=== PATIENT | female | born 1990 | race Caucasian/White ===

== ENCOUNTER 2018-01-14 22:41 | Inpatient (IN) | payer BC ==
[2018-01-14] MEDS ORDERED: Misoprostol 200 MCG Tab PO PRN (23:34)
[2018-01-14] MEDS ORDERED: Butorphanol 1 MG/ML SDV IVPUSH PRN (23:34)
[2018-01-14] MEDS ORDERED: Nalbuphine 10 MG/1 ML Vial IVPUSH PRN (23:34)
[2018-01-14] MEDS ORDERED: Tranexamic Acid 1,000 MG in Sodium Chloride 0.9% 100 ML IV PRN (23:34)
[2018-01-14] MEDS ORDERED: Water For Irrigation,Sterile 1,000 ML Container IRR PRN (23:34)
[2018-01-14] MEDS ORDERED: Carboprost Tromethamine 250 MCG/1 ML Amp IM PRN (23:34)
[2018-01-14] MEDS ORDERED: Methylergonovine 0.2 MG/1 ML Amp IM PRN (23:34)
[2018-01-14] MEDS ORDERED: Lidocaine 1% 50 ML MDV INJECT PRN (23:34)
[2018-01-14] MEDS ORDERED: Sodium Chloride 0.9% 10 ML Syringe FLUSH PRN (23:34)
[2018-01-14] MEDS ORDERED: Sodium Chloride 0.9% 2.5 ML Syringe FLUSH PRN (23:34)
[2018-01-14] MEDS ORDERED: Terbutaline 1 MG/ML SDV SUBCUT PRN (23:36)
[2018-01-14] MEDS ORDERED: Oxytocin/0.9 % Sodium Chloride 30 UNIT/500 ML BAG IV SCH ×2 (23:45)
[2018-01-15] MEDS ORDERED: Ampicillin 2 GM in Sodium Chloride 0.9% 100 ML IV ONE ×2
[2018-01-15] MEDS: Lactated Ringers 1,000 ML IV SCH ×2 (00:31→02:35)
[2018-01-15] MEDS ORDERED: Ampicillin 1 GM in Sodium Chloride 0.9% 50 ML IV SCH (04:00)
[2018-01-15] MEDS ORDERED: fentaNYL 100 MCG/2 ML SDV ONE (04:28)
--- NOTE | 2018-01-15 05:01 | PCM.PREANE ---
Preanesthetic Assessment - Anesthesia/Transfusion/Family Hx Family History of Anesthesia Reaction: No - Review of Systems General: No Symptoms Pulmonary: No Symptoms Cardiovascular: No Symptoms Gastrointestinal: No Symptoms Neurological: No Symptoms Other: Reports: None (Denies any personal or family hx of bleeding or clotting problems) - Physical Assessment Height: 1.75 m Weight: 106.594 kg ASA Class: 2 Mental Status: Alert & Oriented x3 Dentition: Reports: Normal Dentition ROM/Head Extension: Full - Lab Values: Laboratory Last Values WBC 12.40 K/uL (4.0-11.0) H 01/14/18 23:24 RBC 4.15 M/uL (4.30-5.90) L 01/14/18 23:24 Hgb 12.2 g/dL (12.0-16.0) 01/14/18 23:24 Hct 35.5 % (36.0-46.0) L 01/14/18 23:24 MCV 85.5 fL (80.0-98.0) 01/14/18 23:24 MCH 29.4 pg (27.0-32.0) 01/14/18 23:24 MCHC 34.4 g/dL (31.0-37.0) 01/14/18 23:24 RDW Std Deviation 41.8 fl (28.0-62.0) 01/14/18 23:24 RDW Coeff of Aislinn 14 % (11.0-15.0) 01/14/18 23:24 Plt Count 177 K/uL (150-400) 01/14/18 23:24 MPV 10.30 fL (7.40-12.00) 01/14/18 23:24 Nucleated RBC % 0.0 /100WBC 01/14/18 23:24 Nucleated RBCs # 0 K/uL 01/14/18 23:24 Blood Type O NEGATIVE 01/14/18 23:24 Antibody Screen NEGATIVE 01/14/18 23:24 - Allergies Allergies/Adverse Reactions: Allergies Allergy/AdvReac Type Severity Reaction Status Date / Time No Known Allergies Allergy Verified 01/15/18 00:14 - Acknowledgements Anesthesia Type Planned: Epidural Pt an Appropriate Candidate for the Planned Anesthesia: Yes Alternatives and Risks of Anesthesia Discussed w Pt/Guardian: Yes Additional Comments: male in room listening PreAnesthesia Questionnaire - Past Surgical History HEENT Surgical History: Reports: Other (See Below) ([place] teeth) - HOME MEDS Home Medications: Home Meds Vit #108/Iron/FA [ One Tablet] 1 each PO DAILY 01/15/18 [ History] - CURRENT (IN HOUSE) MEDS Current Meds: Current Medications Butorphanol Tartrate (Stadol) 1 mg IVPUSH Q1H PRN PRN Reason: Pain Carboprost Tromethamine (Hemabate Ds) 250 mcg IM ASDIRECTED PRN PRN Reason: Post Hemorrhage Lactated Ringer's (Ringers, Lactated) 1,000 mls @ 150 mls/hr IV ASDIRECTED REINA Last Admin: 01/15/18 02:35 Dose: 150 mls/hr Oxytocin/Sodium Chloride (Oxytocin 30 Unit/500 Ml-Ns) 30 unit in 500 mls @ 999 mls/hr IV TITRATE REINA Tranexamic Acid 1,000 mg/ (Sodium Chloride) 110 mls @ 660 mls/hr IV ONETIME PRN PRN Reason: Bleeding Oxytocin/Sodium Chloride (Oxytocin 30 Unit/500 Ml-Ns) 30 unit in 500 mls @ 2 mls/hr IV TITRATE REINA; Protocol Last Titration: 01/15/18 03:40 Dose: 6 munits/min, 6 mls/hr Ampicillin Sodium 1 gm/ Sodium (Chloride) 50 mls @ 100 mls/hr IV Q4H REINA Lidocaine HCl (Xylocaine 1%) 50 ml INJECT .ONCE PRN PRN Reason: Laceration repair Methylergonovine Maleate (Methergine) 0.2 mg IM ASDIRECTED PRN PRN Reason: Post Hemorrhage Misoprostol (Cytotec) 200 mcg PO .ONCE PRN PRN Reason: Post Hemorrhage Nalbuphine HCl (Nubain) 10 mg IVPUSH Q1H PRN PRN Reason: Pain (severe 7-10) Sodium Chloride (Saline Flush) 10 ml FLUSH ASDIRECTED PRN PRN Reason: Keep Vein Open Sodium Chloride (Saline Flush) 2.5 ml FLUSH ASDIRECTED PRN PRN Reason: Keep Vein Open Sterile Water (Sterile Water For Irrigation) 1,000 ml IRR ASDIRECTED PRN PRN Reason: delivery Terbutaline Sulfate (Brethine) 0.25 mg SUBCUT ASDIRECTED PRN PRN Reason: Tacysystole Discontinued Medications Fentanyl (Sublimaze) Confirm Administered Dose 100 mcg .ROUTE .STK-MED ONE Stop: 01/15/18 04:29 Ampicillin Sodium 2 gm/ Sodium (Chloride) 100 mls @ 200 mls/hr IV ONETIME ONE Stop: 01/15/18 00:29 Last Admin: 01/15/18 00:31 Dose: 200 mls/hr Fentanyl/Bupivacaine HCl (Cmuffngr-Rxunw-Ic 2 Mcg/Ml-0.125%) Confirm Administered Dose 100 mls @ as directed EP .STK-MED ONE Stop: 01/15/18 04:29
--- NOTE | 2018-01-15 05:56 | PCM.SN ---
- Free Text/Narrative Note: Patient still pushing so Dr. Vigil requests epidural infusion to begin. See OB Anesthesia Record for details.
--- NOTE | 2018-01-15 07:59 | PCM.DEL ---
L & D Note - General Info Date of Service: 01/15/18 Mother's Due Date: 01/23/18 - Delivery Note Labor: Augmented by Oxytocin Delivery Outcome: Livebirth Infant Delivery Method: Spontaneous Vaginal Delivery-Single Presentation: Left Occiput Anterior (OMAR) Nuchal Cord: None Prep: Other Anesthesia Type: None, Epidural Episiotomy Type: None Laceration: None, Vaginal Suture type: Vicryl Suture size: 3-0 Placenta: Intact, Spontaneous Cord: 3 Vessels Estimated Blood Loss: 300 Resuscitation Needed: No [place]: Bulb Syringe, [place] Used Score 1 min: 8 Score 5 min: 9 Second Stage Interventions: Reports: Pushing Effectively (presented PROM, wtih induction, GBS prophylaxis) - General Info Date of Service: 01/15/18 - Patient Data Weight - Most Recent: 106.594 kg Lab Results Last 24 Hours: Laboratory Results - last 24 hr 01/14/18 01/14/18 Range/Units 23:24 23:24 WBC 12.40 H (4.0-11.0) K/uL RBC 4.15 L (4.30-5.90) M/uL Hgb 12.2 (12.0-16.0) g/dL Hct 35.5 L (36.0-46.0) % MCV 85.5 (80.0-98.0) fL MCH 29.4 (27.0-32.0) pg MCHC 34.4 (31.0-37.0) g/dL RDW Std Deviation 41.8 (28.0-62.0) fl RDW Coeff of Aislinn 14 (11.0-15.0) % Plt Count 177 (150-400) K/uL MPV 10.30 (7.40-12.00) fL Nucleated RBC % 0.0 /100WBC Nucleated RBCs # 0 K/uL Blood Type O NEGATIVE Antibody Screen NEGATIVE Med Orders - Current: Current Medications Butorphanol Tartrate (Stadol) 1 mg IVPUSH Q1H PRN PRN Reason: Pain Carboprost Tromethamine (Hemabate Ds) 250 mcg IM ASDIRECTED PRN PRN Reason: Post Hemorrhage Lactated Ringer's (Ringers, Lactated) 1,000 mls @ 150 mls/hr IV ASDIRECTED REINA Last Admin: 01/15/18 02:35 Dose: 150 mls/hr Oxytocin/Sodium Chloride (Oxytocin 30 Unit/500 Ml-Ns) 30 unit in 500 mls @ 999 mls/hr IV TITRATE REINA Tranexamic Acid 1,000 mg/ (Sodium Chloride) 110 mls @ 660 mls/hr IV ONETIME PRN PRN Reason: Bleeding Oxytocin/Sodium Chloride (Oxytocin 30 Unit/500 Ml-Ns) 30 unit in 500 mls @ 2 mls/hr IV TITRATE REINA; Protocol Last Titration: 01/15/18 05:28 Dose: 4 munits/min, 4 mls/hr Ampicillin Sodium 1 gm/ Sodium (Chloride) 50 mls @ 100 mls/hr IV Q4H REINA Last Admin: 01/15/18 05:00 Dose: 100 mls/hr Lidocaine HCl (Xylocaine 1%) 50 ml INJECT .ONCE PRN PRN Reason: Laceration repair Methylergonovine Maleate (Methergine) 0.2 mg IM ASDIRECTED PRN PRN Reason: Post Hemorrhage Misoprostol (Cytotec) 200 mcg PO .ONCE PRN PRN Reason: Post Hemorrhage Nalbuphine HCl (Nubain) 10 mg IVPUSH Q1H PRN PRN Reason: Pain (severe 7-10) Sodium Chloride (Saline Flush) 10 ml FLUSH ASDIRECTED PRN PRN Reason: Keep Vein Open Sodium Chloride (Saline Flush) 2.5 ml FLUSH ASDIRECTED PRN PRN Reason: Keep Vein Open Sterile Water (Sterile Water For Irrigation) 1,000 ml IRR ASDIRECTED PRN PRN Reason: delivery Terbutaline Sulfate (Brethine) 0.25 mg SUBCUT ASDIRECTED PRN PRN Reason: Tacysystole Discontinued Medications Fentanyl (Sublimaze) Confirm Administered Dose 100 mcg .ROUTE .STK-MED ONE Stop: 01/15/18 04:29 Ampicillin Sodium 2 gm/ Sodium (Chloride) 100 mls @ 200 mls/hr IV ONETIME ONE Stop: 01/15/18 00:29 Last Admin: 01/15/18 00:31 Dose: 200 mls/hr Fentanyl/Bupivacaine HCl (Bdjnqkow-Rmbyt-Sd 2 Mcg/Ml-0.125%) Confirm Administered Dose 100 mls @ as directed EP .STK-MED ONE Stop: 01/15/18 04:29 Fentanyl/Bupivacaine HCl (Buvfbvkh-Qjhox-Uh 2 Mcg/Ml-0.125%) Confirm Administered Dose 100 mls @ as directed EP .K-MED ONE Stop: 01/15/18 05:39 - Problem List & Annotations (1) PROM with onset of labor within 24 hours, delivered, curr hospitaliz SNOMED Code(s): 220574582 Code(s): O42.00 - NABEEL ROM, ONSET LABOR W/N 24 HR OF RUPT, UNSP WEEKS OF GEST Status: Acute Current Visit: Yes (2) Vaginal delivery SNOMED Code(s): 834178278 Code(s): O80 - ENCOUNTER FOR FULL-TERM UNCOMPLICATED DELIVERY Status: Acute Current Visit: Yes - Problem List Review Problem List Initiated/Reviewed/Updated: Yes - My Orders Last 24 Hours: My Active Orders 01/14/18 23:34 Patient Status [ADT] Routine Heart Tones [RC] CONTINUOUS Non Stress Test [RC] PER UNIT ROUTINE May Shower [RC] ASDIRECTED Notify Provider [RC] PRN Up ad Kati [RC] ASDIRECTED Vaginal Exam [RC] PRN Vital Signs [RC] PER UNIT ROUTINE Butorphanol [Stadol] 1 mg IVPUSH Q1H PRN Carboprost Tromethamine [Hemabate DS] 250 mcg IM ASDIRECTED PRN Lidocaine 1% [Xylocaine 1%] 50 ml INJECT .ONCE PRN Methylergonovine [Methergine] 0.2 mg IM ASDIRECTED PRN Misoprostol [Cytotec] 200 mcg PO .ONCE PRN Nalbuphine [Nubain] 10 mg IVPUSH Q1H PRN Sodium Chloride 0.9% [Saline Flush] 10 ml FLUSH ASDIRECTED PRN Sodium Chloride 0.9% [Saline Flush] 2.5 ml FLUSH ASDIRECTED PRN Tranexamic Acid [Cyklokapron] 1,000 mg Sodium Chloride 0.9% [Normal Saline] 100 ml IV ONETIME Water For Irrigation,Sterile [Sterile Water for Irrigation] 1,000 ml IRR ASDIRECTED PRN Scalp Electrode [WOMSER] Per Unit Routine Peripheral IV Insertion Adult [OM.PC] Routine Resuscitation Status Routine 01/14/18 23:36 Bedrest Bathroom Privileges [RC] ASDIRECTED Communication Order [RC] ASDIRECTED Communication Order [RC] ASDIRECTED Notify Provider [RC] PRN Oxygen Therapy [RC] ASDIRECTED Vaginal Exam [RC] PRN Vital Signs [RC] PER UNIT ROUTINE Terbutaline [Brethine] 0.25 mg SUBCUT ASDIRECTED PRN 01/14/18 23:45 Lactated Ringers [Ringers, Lactated] 1,000 ml IV ASDIRECTED Oxytocin/0.9 % Sodium Chloride [Oxytocin 30 Unit/500 ML-NS] 30 unit in 500 ml IV TITRATE Oxytocin/0.9 % Sodium Chloride [Oxytocin 30 Unit/500 ML-NS] 30 unit in 500 ml IV TITRATE Medication Administration Instruction [OM.PC] Q3H 01/15/18 04:00 Ampicillin 1 gm Sodium Chloride 0.9% [Normal Saline] 50 ml IV Q4H 01/15/18 Breakfast Clear Liquid Diet [DIET]
[2018-01-15] MEDS ORDERED: Lanolin 100% Cream 7 GM Tube TOP PRN (08:02)
[2018-01-15] MEDS ORDERED: Witch Hazel Medicated Pads 40/Jar TOP PRN (08:02)
[2018-01-15] MEDS ORDERED: Ibuprofen 400 MG Tab PO PRN (08:02)
[2018-01-15] MEDS ORDERED: Docusate Sodium 100 MG Cap PO PRN (08:02)
[2018-01-15] MEDS ORDERED: Acetaminophen 500 MG Tab PO PRN (08:02)
[2018-01-15] MEDS ORDERED: Methylergonovine 0.2 MG/1 ML Amp IM PRN (08:02)
[2018-01-15] MEDS ORDERED: Bisacodyl 10 MG Supp RECTAL PRN (08:02)
[2018-01-15] MEDS ORDERED: Benzocaine/Menthol 20%-0.5% Spray 78 GM Cannister TOP PRN (08:02)
--- NOTE | 2018-01-15 09:03 | OR ---
SURGEON: Mireille Vigil M.D. DATE OF PROCEDURE: 01/15/2018 PREOPERATIVE DIAGNOSES: 1. A 38-5/7 weeks' intrauterine . 2. Premature rupture of membranes with induction. 3. Group B Streptococcus positive. POSTOPERATIVE DIAGNOSES: 1. A 38-5/7 weeks' intrauterine . 2. Premature rupture of membranes with induction. 3. Group B Streptococcus positive. PROCEDURES PERFORMED: Group B Strep prophylaxis, Pitocin induction of labor, and term spontaneous vaginal delivery. ANESTHESIA: Epidural. ESTIMATED BLOOD LOSS: Less than 300 mL. FINDINGS: Liveborn male, scores of 8 and 9, weighing 3350 g. Placenta; spontaneous, Schultze, intact with 3 vessels. Vaginal laceration repaired. COMPLICATIONS: None known. DISPOSITION: Mother and baby are in LDRP in good condition. BRIEF HISTORY: This is a 27-year-old female . She presents at 38-5/7 weeks' gestation, and she had spontaneous rupture of membranes. She presented at 4 cm, 80%, but with no contractions. She is group B Strep positive. She was started on ampicillin for group B Strep prophylaxis. Category 1 heart tones were noted. She was started on Pitocin, which allowed her to go into labor, and she continued to have category 1 heart tones. She did receive an epidural for pain control. By the end of the epidural, she was 10 cm and began to push. DESCRIPTION OF PROCEDURE: With the patient in dorsal lithotomy position, the patient pushed for approximately 2 hours, please see nursing notes, to a 5+ station, at which time the head was delivered spontaneously and atraumatically over the perineum with support with subsequent delivery of the infant's shoulders and body without any difficulty. The infant was bulb suctioned by nose and mouth. The cord was clamped x2 and cut after it had ceased to pulsate, and the infant was handed to the mother in the presence of the nurse attending delivery. The was a liveborn male, scores 8 and 9, weight was 3350 g. Cord blood was collected for cord ABGs as well as routine cord blood sampling. Pitocin was initiated after delivery of the infant to assist with delivery of the placenta, which was delivered spontaneously, Schult[place], intact with 3 vessels. Upon inspection of the pelvis and perineum, there were no periurethral, cervical, labial, or perineal laceration. At 5 o'clock, there was a 2.5 cm vaginal laceration that was repaired with a running locked suture of 3-0 Polysorb. Final sponge, needle, and instrument counts were correct. There were no known complications. Mother and baby remained in LDRP in good condition. REJI TREADWELL /[id number]
--- NOTE | 2018-01-15 11:13 | PCM48HPAN ---
Post Anesthesia Note - EVALUATION WITHIN 48HRS OF ANESTHETIC Vital Signs in Normal Range: Yes Patient Participated in Evaluation: Yes Respiratory Function Stable: Yes Airway Patent: Yes Cardiovascular Function Stable: Yes Hydration Status Stable: Yes Pain Control Satisfactory: Yes Nausea and Vomiting Control Satisfactory: Yes Mental Status Recovered: Yes - COMMENTS/OBSERVATIONS Free Text/Narrative:: Sitting up in bed with baby. Denies any complaints at this time.
[2018-01-15] MEDS: Acetaminophen 500 MG Tab PO PRN (13:05)
[2018-01-15] MEDS: Ibuprofen 800 MG Tab PO PRN ×2 (16:30→22:13)
[2018-01-15] MEDS: oxyCODONE 5 MG Tab PO PRN (17:49)
[2018-01-16] MEDS: Acetaminophen 500 MG Tab PO PRN ×2 (01:36→08:38)
--- NOTE | 2018-01-16 08:42 | PCM.PNPP ---
<Amie Montaño - Last Filed: 01/16/18 08:36> - General Info Date of Service: 01/16/18 Functional Status: Reports: Pain Controlled, Tolerating Diet, Ambulating, Urinating - Review of Systems General: Denies: Fever, Weakness, Fatigue Pulmonary: Denies: Shortness of Breath, Pleuritic Chest Pain, Cough Cardiovascular: Denies: Chest Pain, Palpitations, Dyspnea on Exertion Gastrointestinal: Denies: Abdominal Pain Genitourinary: Denies: Dysuria - General Info Date of Service: 01/16/18 - Patient Data Vital Signs - Most Recent: Last Vital Signs Temp 36.9 C 01/15/18 18:00 Pulse 97 01/15/18 18:00 Resp 16 01/15/18 18:00 BP 114/68 01/15/18 18:00 Pulse Ox 97 01/15/18 18:00 Weight - Most Recent: 235 lb I&O - Last 24 Hours: Intake & Output 01/15/18 01/16/18 01/16/18 22:59 06:59 14:59 Intake Total 2 Balance 2 Lab Results - Last 24 Hours: Laboratory Results - last 24 hr 01/15/18 01/15/18 Range/Units 07:36 09:25 Cord ABG pH 7.260 (7.18-7.38) Cord ABG Base Excess -5 (-10--2) Cord VBG pH 7.314 (7.25-7.45) Cord VBG Base Excess -7 (-10--2) Screen Cancelled RhIG Candidate? Cancelled Rhogam Indicated YES, BABY RH POS H KB Screen SEE NOTE KB Cells Counted 0 KB Red Cells Counted 2043 KB % Cells 0.00 Doses of RhIg Required 1 Med Orders - Current: Current Medications Acetaminophen (Tylenol Extra Strength) 500 mg PO Q4H PRN PRN Reason: Pain Last Admin: 01/15/18 17:51 Dose: 500 mg Acetaminophen (Tylenol Extra Strength) 1,000 mg PO Q4H PRN PRN Reason: Pain Last Admin: 01/16/18 01:36 Dose: 1,000 mg Benzocaine/Menthol (Dermoplast Pain Relief 20%-0.5% [place]) 78 gm TOP ASDIRECTED PRN PRN Reason: Perineal Comfort Measure Last Admin: 01/15/18 12:51 Dose: 78 gm Bisacodyl (Dulcolax) 10 mg RECTAL .ONCE PRN PRN Reason: Constipation Docusate Sodium (Colace) 100 mg PO BID PRN PRN Reason: Constipation Emollient Ointment (Lansinoh Hpa) 0 gm TOP ASDIRECTED PRN PRN Reason: Sore Nipples Last Admin: 01/15/18 12:51 Dose: 7 gm Ibuprofen (Motrin) 400 mg PO Q4H PRN PRN Reason: Pain Ibuprofen (Motrin) 800 mg PO Q6H PRN PRN Reason: Pain Last Admin: 01/15/18 22:13 Dose: 800 mg Methylergonovine Maleate (Methergine) 0.2 mg IM .ONCE PRN PRN Reason: Excessive Vaginal Bleeding Oxycodone HCl (Oxycodone) 5 mg PO Q2H PRN PRN Reason: Pain Last Admin: 01/15/18 17:49 Dose: 5 mg Witch Marlene (Tucks) 1 pad TOP ASDIRECTED PRN PRN Reason: comfort care Last Admin: 01/15/18 12:51 Dose: 1 pad Discontinued Medications Butorphanol Tartrate (Stadol) 1 mg IVPUSH Q1H PRN PRN Reason: Pain Carboprost Tromethamine (Hemabate Ds) 250 mcg IM ASDIRECTED PRN PRN Reason: Post Hemorrhage Fentanyl (Sublimaze) Confirm Administered Dose 100 mcg .ROUTE .[employer] [place]-MED ONE Stop: 01/15/18 04:29 Lactated Ringer's (Ringers, Lactated) 1,000 mls @ 150 mls/hr IV ASDIRECTED REINA Last Admin: 01/15/18 02:35 Dose: 150 mls/hr Oxytocin/Sodium Chloride (Oxytocin 30 Unit/500 Ml-Ns) 30 unit in 500 mls @ 999 mls/hr IV TITRATE REINA Tranexamic Acid 1,000 mg/ (Sodium Chloride) 110 mls @ 660 mls/hr IV ONETIME PRN PRN Reason: Bleeding Oxytocin/Sodium Chloride (Oxytocin 30 Unit/500 Ml-Ns) 30 unit in 500 mls @ 2 mls/hr IV TITRATE REINA; Protocol Last Titration: 01/15/18 05:28 Dose: 4 munits/min, 4 mls/hr Ampicillin Sodium 2 gm/ Sodium (Chloride) 100 mls @ 200 mls/hr IV ONETIME ONE Stop: 01/15/18 00:29 Last Admin: 01/15/18 00:31 Dose: 200 mls/hr Ampicillin Sodium 1 gm/ Sodium (Chloride) 50 mls @ 100 mls/hr IV Q4H REINA Last Admin: 01/15/18 05:00 Dose: 100 mls/hr Fentanyl/Bupivacaine HCl (Ewfsmvrx-Qbict-Dd 2 Mcg/Ml-0.125%) Confirm Administered Dose 100 mls @ as directed EP .STK-MED ONE Stop: 01/15/18 04:29 Fentanyl/Bupivacaine HCl (Afjgskjy-Sjxpt-Tn 2 Mcg/Ml-0.125%) Confirm Administered Dose 100 mls @ as directed EP .STK-MED ONE Stop: 01/15/18 05:39 Lidocaine HCl (Xylocaine 1%) 50 ml INJECT .ONCE PRN PRN Reason: Laceration repair Methylergonovine Maleate (Methergine) 0.2 mg IM ASDIRECTED PRN PRN Reason: Post Hemorrhage Misoprostol (Cytotec) 200 mcg PO .ONCE PRN PRN Reason: Post Hemorrhage Nalbuphine HCl (Nubain) 10 mg IVPUSH Q1H PRN PRN Reason: Pain (severe 7-10) Sodium Chloride (Saline Flush) 10 ml FLUSH ASDIRECTED PRN PRN Reason: Keep Vein Open Sodium Chloride (Saline Flush) 2.5 ml FLUSH ASDIRECTED PRN PRN Reason: Keep Vein Open Sterile Water (Sterile Water For Irrigation) 1,000 ml IRR ASDIRECTED PRN PRN Reason: delivery Last Admin: 01/15/18 07:32 Dose: 1,000 ml Terbutaline Sulfate (Brethine) 0.25 mg SUBCUT ASDIRECTED PRN PRN Reason: Tacysystole - Infant Interaction Infant Disposition, : Amigo in Room with Family Interaction: Holding Infant Feeding: Attempted ; Nursed Fair/Poor Support Person: - Recovery Exam Fundal Tone: Firm Fundal Level: 1 Fingerbreadths Below Umbilicus Fundal Placement: Midline Lochia Amount: Scant Lochia Color: Rubra/Red Perineum Description: Intact, Minimal Bruising/Swelling Other Perinuem Description: First degree tear Episiotomy/Laceration: Approximated Bladder Status: Voiding Urinary Elimination: Voided - Exam General: Alert, Oriented Neck: Supple Lungs: Clear to Auscultation, Normal Respiratory Effort Cardiovascular: Regular Rate, Regular Rhythm GI/Abdominal Exam: Normal Bowel Sounds, Soft Extremities: Normal Inspection, Normal Capillary Refill, Pedal Edema (trace) Skin: Warm, Dry, Intact - Problem List & Annotations (1) Vaginal delivery SNOMED Code(s): 718029139 Code(s): O80 - ENCOUNTER FOR FULL-TERM UNCOMPLICATED DELIVERY Status: Acute Current Visit: Yes - Problem List Review Problem List Initiated/Reviewed/Updated: Yes - Assessment Assessment:: PPD#1 s/p . Minimal pain and lochia. Work on breast feeding today. Encouraged patient to shower and ambulate halls. Anticipate discharge home tomorrow. - Plan Plan:: Continue Routine post-op cares. Anticipate discharge home tomorrow. <Kemi Fraireian - Last Filed: 01/16/18 09:53> - Patient Data Vital Signs - Most Recent: Last Vital Signs Temp 36.9 C 01/15/18 18:00 Pulse 97 01/15/18 18:00 Resp 16 01/15/18 18:00 BP 114/68 01/15/18 18:00 Pulse Ox 97 01/15/18 18:00 I&O - Last 24 Hours: Intake & Output 01/15/18 01/16/18 01/16/18 22:59 06:59 14:59 Intake Total 2 Balance 2 Lab Results - Last 24 Hours: Laboratory Results - last 24 hr 01/15/18 Range/Units 09:25 Screen Cancelled RhIG Candidate? Cancelled Rhogam Indicated YES, BABY RH POS H KB Screen SEE NOTE KB Cells Counted 0 KB Red Cells Counted 2043 KB % Cells 0.00 Doses of RhIg Required 1 Med Orders - Current: Current Medications Acetaminophen (Tylenol Extra Strength) 500 mg PO Q4H PRN PRN Reason: Pain Last Admin: 01/15/18 17:51 Dose: 500 mg Acetaminophen (Tylenol Extra Strength) 1,000 mg PO Q4H PRN PRN Reason: Pain Last Admin: 01/16/18 08:38 Dose: 1,000 mg Benzocaine/Menthol (Dermoplast Pain Relief 20%-0.5% [place]) 78 gm TOP ASDIRECTED PRN PRN Reason: Perineal Comfort Measure Last Admin: 01/15/18 12:51 Dose: 78 gm Bisacodyl (Dulcolax) 10 mg RECTAL .ONCE PRN PRN Reason: Constipation Docusate Sodium (Colace) 100 mg PO BID PRN PRN Reason: Constipation Emollient Ointment (Lansinoh Hpa) 0 gm TOP ASDIRECTED PRN PRN Reason: Sore Nipples Last Admin: 01/15/18 12:51 Dose: 7 gm Ibuprofen (Motrin) 400 mg PO Q4H PRN PRN Reason: Pain Ibuprofen (Motrin) 800 mg PO Q6H PRN PRN Reason: Pain Last Admin: 01/15/18 22:13 Dose: 800 mg Methylergonovine Maleate (Methergine) 0.2 mg IM .ONCE PRN PRN Reason: Excessive Vaginal Bleeding Oxycodone HCl (Oxycodone) 5 mg PO Q2H PRN PRN Reason: Pain Last Admin: 01/15/18 17:49 Dose: 5 mg Witch Marlene (Tucks) 1 pad TOP ASDIRECTED PRN PRN Reason: comfort care Last Admin: 01/15/18 12:51 Dose: 1 pad Discontinued Medications Butorphanol Tartrate (Stadol) 1 mg IVPUSH Q1H PRN PRN Reason: Pain Carboprost Tromethamine (Hemabate Ds) 250 mcg IM ASDIRECTED PRN PRN Reason: Post Hemorrhage Fentanyl (Sublimaze) Confirm Administered Dose 100 mcg .ROUTE .[facility]-MED ONE Stop: 01/15/18 04:29 Lactated Ringer's (Ringers, Lactated) 1,000 mls @ 150 mls/hr IV ASDIRECTED REINA Last Admin: 01/15/18 02:35 Dose: 150 mls/hr Oxytocin/Sodium Chloride (Oxytocin 30 Unit/500 Ml-Ns) 30 unit in 500 mls @ 999 mls/hr IV TITRATE REINA Tranexamic Acid 1,000 mg/ (Sodium Chloride) 110 mls @ 660 mls/hr IV ONETIME PRN PRN Reason: Bleeding Oxytocin/Sodium Chloride (Oxytocin 30 Unit/500 Ml-Ns) 30 unit in 500 mls @ 2 mls/hr IV TITRATE REINA; Protocol Last Titration: 01/15/18 05:28 Dose: 4 munits/min, 4 mls/hr Ampicillin Sodium 2 gm/ Sodium (Chloride) 100 mls @ 200 mls/hr IV ONETIME ONE Stop: 01/15/18 00:29 Last Admin: 01/15/18 00:31 Dose: 200 mls/hr Ampicillin Sodium 1 gm/ Sodium (Chloride) 50 mls @ 100 mls/hr IV Q4H REINA Last Admin: 01/15/18 05:00 Dose: 100 mls/hr Fentanyl/Bupivacaine HCl (Mqyvrzee-Gupyz-Lh 2 Mcg/Ml-0.125%) Confirm Administered Dose 100 mls @ as directed EP .STK-MED ONE Stop: 01/15/18 04:29 Fentanyl/Bupivacaine HCl (Svrqhfil-Juylk-Gy 2 Mcg/Ml-0.125%) Confirm Administered Dose 100 mls @ as directed EP .STK-MED ONE Stop: 01/15/18 05:39 Lidocaine HCl (Xylocaine 1%) 50 ml INJECT .ONCE PRN PRN Reason: Laceration repair Methylergonovine Maleate (Methergine) 0.2 mg IM ASDIRECTED PRN PRN Reason: Post Hemorrhage Misoprostol (Cytotec) 200 mcg PO .ONCE PRN PRN Reason: Post Hemorrhage Nalbuphine HCl (Nubain) 10 mg IVPUSH Q1H PRN PRN Reason: Pain (severe 7-10) Sodium Chloride (Saline Flush) 10 ml FLUSH ASDIRECTED PRN PRN Reason: Keep Vein Open Sodium Chloride (Saline Flush) 2.5 ml FLUSH ASDIRECTED PRN PRN Reason: Keep Vein Open Sterile Water (Sterile Water For Irrigation) 1,000 ml IRR ASDIRECTED PRN PRN Reason: delivery Last Admin: 01/15/18 07:32 Dose: 1,000 ml Terbutaline Sulfate (Brethine) 0.25 mg SUBCUT ASDIRECTED PRN PRN Reason: Tacysystole - Assessment Assessment:: Patient seen and evaluated independently, agree with above - Plan Plan:: Agree with above
[2018-01-16] MEDS: oxyCODONE 5 MG Tab PO PRN (11:46)
[2018-01-16] MEDS: Ibuprofen 800 MG Tab PO PRN ×2 (14:24→20:22)
[2018-01-17] MEDS: Ibuprofen 800 MG Tab PO PRN (03:01)
--- NOTE | 2018-01-17 07:33 | PCM.PNPP ---
- General Info Date of Service: 01/17/18 Functional Status: Reports: Pain Controlled, Tolerating Diet, Ambulating, Urinating - Review of Systems General: Denies: Fever, Fatigue, Chills HEENT: Denies: Headaches Pulmonary: Denies: Shortness of Breath, Pleuritic Chest Pain Cardiovascular: Denies: Chest Pain, Palpitations Gastrointestinal: Denies: Abdominal Pain Genitourinary: Denies: Dysuria, Incontinence Psychiatric: Denies: Depression, Mood Lability, Anxiety - General Info Date of Service: 01/17/18 - Patient Data Vital Signs - Most Recent: Last Vital Signs Temp 36.6 C 01/17/18 03:00 Pulse 85 01/17/18 03:00 Resp 17 01/17/18 03:00 BP 122/69 01/17/18 03:00 Pulse Ox 99 01/17/18 03:00 Weight - Most Recent: 235 lb Lab Results - Last 24 Hours: Laboratory Results - last 24 hr 01/16/18 Range/Units 14:56 Hgb 10.8 L (12.0-16.0) g/dL Hct 32.3 L (36.0-46.0) % Med Orders - Current: Current Medications Acetaminophen (Tylenol Extra Strength) 500 mg PO Q4H PRN PRN Reason: Pain Last Admin: 01/15/18 17:51 Dose: 500 mg Acetaminophen (Tylenol Extra Strength) 1,000 mg PO Q4H PRN PRN Reason: Pain Last Admin: 01/16/18 08:38 Dose: 1,000 mg Benzocaine/Menthol (Dermoplast Pain Relief 20%-0.5% [place]) 78 gm TOP ASDIRECTED PRN PRN Reason: Perineal Comfort Measure Last Admin: 01/15/18 12:51 Dose: 78 gm Bisacodyl (Dulcolax) 10 mg RECTAL .ONCE PRN PRN Reason: Constipation Docusate Sodium (Colace) 100 mg PO BID PRN PRN Reason: Constipation Last Admin: 01/16/18 20:17 Dose: 100 mg Emollient Ointment (Lansinoh Hpa) 0 gm TOP ASDIRECTED PRN PRN Reason: Sore Nipples Last Admin: 01/15/18 12:51 Dose: 7 gm Ibuprofen (Motrin) 400 mg PO Q4H PRN PRN Reason: Pain Ibuprofen (Motrin) 800 mg PO Q6H PRN PRN Reason: Pain Last Admin: 01/17/18 03:01 Dose: 800 mg Methylergonovine Maleate (Methergine) 0.2 mg IM .ONCE PRN PRN Reason: Excessive Vaginal Bleeding Oxycodone HCl (Oxycodone) 5 mg PO Q2H PRN PRN Reason: Pain Last Admin: 01/16/18 11:46 Dose: 5 mg Witch Marlene (Tucks) 1 pad TOP ASDIRECTED PRN PRN Reason: comfort care Last Admin: 01/15/18 12:51 Dose: 1 pad Discontinued Medications Butorphanol Tartrate (Stadol) 1 mg IVPUSH Q1H PRN PRN Reason: Pain Carboprost Tromethamine (Hemabate Ds) 250 mcg IM ASDIRECTED PRN PRN Reason: Post Hemorrhage Fentanyl (Sublimaze) Confirm Administered Dose 100 mcg .ROUTE .STK-MED ONE Stop: 01/15/18 04:29 Lactated Ringer's (Ringers, Lactated) 1,000 mls @ 150 mls/hr IV ASDIRECTED REINA Last Admin: 01/15/18 02:35 Dose: 150 mls/hr Oxytocin/Sodium Chloride (Oxytocin 30 Unit/500 Ml-Ns) 30 unit in 500 mls @ 999 mls/hr IV TITRATE REINA Tranexamic Acid 1,000 mg/ (Sodium Chloride) 110 mls @ 660 mls/hr IV ONETIME PRN PRN Reason: Bleeding Oxytocin/Sodium Chloride (Oxytocin 30 Unit/500 Ml-Ns) 30 unit in 500 mls @ 2 mls/hr IV TITRATE REINA; Protocol Last Titration: 01/15/18 05:28 Dose: 4 munits/min, 4 mls/hr Ampicillin Sodium 2 gm/ Sodium (Chloride) 100 mls @ 200 mls/hr IV ONETIME ONE Stop: 01/15/18 00:29 Last Admin: 01/15/18 00:31 Dose: 200 mls/hr Ampicillin Sodium 1 gm/ Sodium (Chloride) 50 mls @ 100 mls/hr IV Q4H REINA Last Admin: 01/15/18 05:00 Dose: 100 mls/hr Fentanyl/Bupivacaine HCl (Xefheukv-Kttjn-Yb 2 Mcg/Ml-0.125%) Confirm Administered Dose 100 mls @ as directed EP .STK-MED ONE Stop: 01/15/18 04:29 Fentanyl/Bupivacaine HCl (Zqzcrcvq-Fluik-Wa 2 Mcg/Ml-0.125%) Confirm Administered Dose 100 mls @ as directed EP .[email or web address]-MED ONE Stop: 01/15/18 05:39 Lidocaine HCl (Xylocaine 1%) 50 ml INJECT .ONCE PRN PRN Reason: Laceration repair Methylergonovine Maleate (Methergine) 0.2 mg IM ASDIRECTED PRN PRN Reason: Post Hemorrhage Misoprostol (Cytotec) 200 mcg PO .ONCE PRN PRN Reason: Post Hemorrhage Nalbuphine HCl (Nubain) 10 mg IVPUSH Q1H PRN PRN Reason: Pain (severe 7-10) Sodium Chloride (Saline Flush) 10 ml FLUSH ASDIRECTED PRN PRN Reason: Keep Vein Open Sodium Chloride (Saline Flush) 2.5 ml FLUSH ASDIRECTED PRN PRN Reason: Keep Vein Open Sterile Water (Sterile Water For Irrigation) 1,000 ml IRR ASDIRECTED PRN PRN Reason: delivery Last Admin: 01/15/18 07:32 Dose: 1,000 ml Terbutaline Sulfate (Brethine) 0.25 mg SUBCUT ASDIRECTED PRN PRN Reason: Tacysystole - Infant Interaction Disposition, : in Room with Family Interaction: Holding Infant Feeding: Attempted ; Nursed Fair/Poor (supplementing with formulae), Continues to Breastfeed Support Person: - Recovery Exam Fundal Tone: Firm Fundal Level: 1 Fingerbreadths Below Umbilicus Fundal Placement: Midline Lochia Amount: Scant Lochia Color: Rubra/Red Perineum Description: Intact, Minimal Bruising/Swelling Other Perinuem Description: First degree tear Episiotomy/Laceration: Approximated Bladder Status: Voiding Urinary Elimination: Voided - Exam General: Alert, Oriented HEENT: Pupils Equal Lungs: Clear to Auscultation, Normal Respiratory Effort Cardiovascular: Regular Rate, Regular Rhythm GI/Abdominal Exam: Normal Bowel Sounds Extremities: Non-Tender, Pedal Edema Skin: Warm Psy/Mental Status: Alert, Normal Affect, Normal Mood - Problem List & Annotations (1) PROM with onset of labor within 24 hours, [facility] SN[facility] Code(s): 791631510 Code(s): O42.00 - NABEEL ROM, ONSET LABOR W/N 24 HR OF RUPT, UNSP WEEKS OF GEST Status: Acute Current Visit: Yes (2) Vaginal delivery SNOMED Code(s): 800424204 Code(s): O80 - ENCOUNTER FOR FULL-TERM UNCOMPLICATED DELIVERY Status: Acute Current Visit: Yes - Problem List Review Problem List Initiated/Reviewed/Updated: Yes - Assessment Assessment:: PPD#2 s/p , stable and afebrile Baby has made some improvement with feeding - Plan Plan:: Discharge instructions reviewed with patient Nothing in the vagina for 6 weeks Continue PNV Use OTC pain meds for pain PRN Reviewed bleeding and infection precautions blues vs depression S/S were reviewed. Follow up in clinic in 6 weeks
== END 2018-01-17 12:20 | disposition home or self-care (01) | DRG 560 ==
LOC: MW.OBCHECK 22:41 → MW.OB 22:45 → MW.OBCHECK 23:45 → OBSVTOIN 01-15 07:36 → MW.OB 01-15 14:40
PROVIDERS: ADMIT Obstetrics & Gynecology; ATTEND Obstetrics & Gynecology
PROC: 10E0XZZ Delivery of Products of Conception, External Approach (ICD-10-PCS; principal; 2018-01-15)
PROC: 3E033VJ Introduction of Other Hormone into Peripheral Vein, Percutaneous Approach (ICD-10-PCS; 2018-01-15)
PROC: 0HQ9XZZ Repair Perineum Skin, External Approach (ICD-10-PCS; 2018-01-15)
DX: O42.02 Full-term premature rupture of membranes, onset of labor within 24 hours of rupture (principal); O71.4 Obstetric high vaginal laceration alone; O99.824 Streptococcus B carrier state complicating childbirth; Z3A.38 38 weeks gestation of pregnancy; Z37.0 Single live birth
CPT/HCPCS: 36415; 59025; 59409; 82803; 85014; 85018; 85027; 85460; 86850; 86900; 86901; A9270-GY; J0290; J2590; J2790; J3010; J7030; J7050; J7120

== ENCOUNTER 2019-10-22 16:24 | Inpatient (IN) | payer BC ==
[2019-10-22] MEDS ORDERED: Carboprost Tromethamine 250 MCG/1 ML Amp IM PRN (17:11)
[2019-10-22] MEDS ORDERED: Ampicillin 2 GM in Sodium Chloride 0.9% 100 ML IV ONE (17:11)
[2019-10-22] MEDS ORDERED: Butorphanol 1 MG/ML SDV IVPUSH PRN (17:11)
[2019-10-22] MEDS ORDERED: Tranexamic Acid 1,000 MG in Sodium Chloride 0.9% 100 ML IV PRN (17:11)
[2019-10-22] MEDS ORDERED: Misoprostol 200 MCG Tab PO PRN (17:11)
[2019-10-22] MEDS ORDERED: Sodium Chloride 0.9% 10 ML SDV IV PRN (17:11)
[2019-10-22] MEDS ORDERED: Methylergonovine 0.2 MG/1 ML Amp IM PRN (17:11)
[2019-10-22] MEDS ORDERED: Sodium Chloride 0.9% 2.5 ML Syringe FLUSH PRN (17:11)
[2019-10-22] MEDS ORDERED: Water For Irrigation,Sterile 1,000 ML Container IRR PRN (17:11)
[2019-10-22] MEDS ORDERED: Lidocaine 1% 50 ML MDV INJECT PRN (17:11)
[2019-10-22] MEDS ORDERED: Nalbuphine 10 MG/1 ML Vial IVPUSH PRN (17:11)
[2019-10-22] MEDS ORDERED: Sodium Chloride 0.9% 10 ML Syringe FLUSH PRN (17:11)
[2019-10-22] MEDS ORDERED: Ampicillin 2 GM AdvVial IV ONE (17:14)
[2019-10-22] MEDS ORDERED: Oxytocin/0.9 % Sodium Chloride 30 UNIT/500 ML BAG IV SCH (17:15)
[2019-10-22] MEDS ORDERED: Lactated Ringers 1,000 ML IV SCH (17:15)
[2019-10-22] MEDS ORDERED: Sodium Chloride 0.9% 0 ML ONE (17:15)
[2019-10-22] MEDS ORDERED: oxyCODONE 5 MG Tab PO PRN (17:49)
[2019-10-22] MEDS ORDERED: Docusate Sodium 100 MG Cap PO PRN (17:49)
[2019-10-22] MEDS ORDERED: Bisacodyl 10 MG Supp RECTAL PRN (17:49)
[2019-10-22] MEDS ORDERED: Benzocaine/Menthol 20%-0.5% Spray 78 GM Cannister TOP PRN (17:49)
[2019-10-22] MEDS ORDERED: Witch Hazel Medicated Pads 40/Jar TOP PRN (17:49)
[2019-10-22] MEDS ORDERED: Acetaminophen 500 MG Tab PO PRN (17:49)
[2019-10-22] MEDS ORDERED: Lanolin 100% Cream 7 GM Tube TOP PRN (17:49)
--- NOTE | 2019-10-22 17:53 | PCM.OPNOTE ---
- General Post-Op/Procedure Note Date of Surgery/Procedure: 10/22/19 Operative Procedure(s): Spontaneous vaginal delivery. Bilateral pudendal nerve block Findings: Live female infant, left occiput anterior position, Apgars 8/9, weight pending, cord gases pending Placenta intact with 3-vessel cord, suspected small abruption No perineal lacerations Pre Op Diagnosis: 29yo @ 38w1d in labor. GBS+ Post-Op Diagnosis: 29yo s/p spontaneous vaginal delivery at 38w1d. GBS+ . Suspected placental abruption Anesthesia Technique: Local (Bilateral pudendal nerve block - 10cc Lidocaine injected bilaterally) Primary Surgeon: Billie Collier Pathology: Cord blood, cord gases EBL in mLs: 300 Complications: None Condition: Good Free Text/Narrative:: GBS prophylaxis not given due to rapid nature of delivery
[2019-10-22] MEDS: Ibuprofen 800 MG Tab PO PRN (19:23)
--- NOTE | 2019-10-22 23:27 | OR ---
SURGEON: Billie Collier MD DATE OF PROCEDURE: 10/22/2019 PREOPERATIVE DIAGNOSES: 1. A 29-year-old G2, P1-0-0-1 at 38 weeks and 1 day gestation. 2. Spontaneous labor. 3. Group B Streptococcus positive. POSTOPERATIVE DIAGNOSES: 1. A 29-year-old G2, P2-0-0-2, status post spontaneous vaginal delivery. 2. Group B Streptococcus positive. 3. Suspected placental abruption. PROCEDURE: 1. Spontaneous vaginal delivery. 2. Bilateral pudendal nerve block. PRIMARY SURGEON: Billie Collier MD ANESTHESIA: 10 mL lidocaine injected bilaterally for a pudendal nerve block. ESTIMATED BLOOD LOSS: 300 mL. FINDINGS: 1. Live female infant in left occiput anterior position, scores 8 and 9 at one and five minutes respectively, weight pending, cord gases pending. 2. Placenta intact with 3-vessel cord, suspected small abruption. 3. No perineal lacerations. COMPLICATIONS: None. INDICATIONS: This is a 29-year-old G2, P1-0-0-1, who presented at 38 weeks and 1 day gestation in active labor. Upon presentation, her cervix was found to be 8 cm dilated. Intermittent heart rate decelerations were noted on monitoring down to the 60s to 70s, lasting 1 to 2 minutes with spontaneous resolution. The patient was rechecked and found to be 9 cm dilated. At this time, it was determined to perform artificial rupture of membranes with minimal fluid noted and proceed with pushing. DESCRIPTION OF PROCEDURE: The patient progressed to complete cervical dilation. A pudendal nerve kit was opened up with lidocaine. Approximately 10 mL of 1% lidocaine was injected bilaterally into the pudendal nerves. The patient pushed and delivered a live female infant in left occiput anterior position. The head was delivered followed quickly by the shoulders and remainder of the body. The infant was placed on the maternal abdomen. After approximately 6 seconds, the cord was clamped and cut. The placenta then delivered intact and with 3-vessel cord. The placenta was inspected and a small abruption was noted. Cord gases and cord blood were obtained. Perineum was inspected. No lacerations were noted. Estimated blood loss was 300 mL. The fundus was firm. The patient and tolerated the delivery well. [id number] / MODL /[id number] MTDDrew
[2019-10-23] MEDS: Ibuprofen 800 MG Tab PO PRN ×3 (04:11→22:37)
--- NOTE | 2019-10-23 07:49 | PCM.PNPP ---
- General Info Date of Service: 10/23/19 Subjective Update: Patient doing well. Minimal lochia. Pain controlled. Tolerating oral intake, ambulating without difficulty. going well. Functional Status: Reports: Pain Controlled, Tolerating Diet, Urinating - Review of Systems General: Reports: No Symptoms HEENT: Reports: No Symptoms Pulmonary: Reports: No Symptoms Cardiovascular: Reports: No Symptoms Gastrointestinal: Reports: No Symptoms Genitourinary: Reports: No Symptoms Musculoskeletal: Reports: No Symptoms Skin: Reports: No Symptoms Neurological: Reports: No Symptoms Psychiatric: Reports: No Symptoms - Patient Data Vital Signs - Most Recent: Last Vital Signs Temp 36.3 C 10/23/19 07:28 Pulse 79 10/23/19 07:28 Resp 16 10/23/19 07:28 BP 120/68 10/23/19 07:28 Pulse Ox 97 10/23/19 07:28 Weight - Most Recent: 99.79 kg Lab Results - Last 24 Hours: Laboratory Results - last 24 hr 10/22/19 10/22/19 10/22/19 Range/Units 17:00 17:00 17:32 WBC 10.65 (4.0-11.0) K/uL RBC 4.53 (4.30-5.90) M/uL Hgb 13.4 (12.0-16.0) g/dL Hct 39.6 (36.0-46.0) % MCV 87.4 (80.0-98.0) fL MCH 29.6 (27.0-32.0) pg MCHC 33.8 (31.0-37.0) g/dL RDW Std Deviation 42.6 (28.0-62.0) fl RDW Coeff of Aislinn 13 (11.0-15.0) % Plt Count 155 (150-400) K/uL MPV 10.80 (7.40-12.00) fL Nucleated RBC % 0.0 /100WBC Nucleated RBCs # 0 K/uL Cord ABG pH 7.257 (7.18-7.38) Cord ABG Base Excess -5 (-10--2) Cord VBG pH 7.377 (7.25-7.45) Cord VBG Base Excess -3 (-10--2) Blood Type O NEGATIVE Antibody Screen NEGATIVE Screen (NEGATIVE) RhIG Candidate? Rhogam Indicated 10/22/19 10/23/19 Range/Units 18:55 05:05 WBC (4.0-11.0) K/uL RBC (4.30-5.90) M/uL Hgb 11.6 L (12.0-16.0) g/dL Hct 35.2 L (36.0-46.0) % MCV (80.0-98.0) fL MCH (27.0-32.0) pg MCHC (31.0-37.0) g/dL RDW Std Deviation (28.0-62.0) fl RDW Coeff of Aislinn (11.0-15.0) % Plt Count (150-400) K/uL MPV (7.40-12.00) fL Nucleated RBC % /100WBC Nucleated RBCs # K/uL Cord ABG pH (7.18-7.38) Cord ABG Base Excess (-10--2) Cord VBG pH (7.25-7.45) Cord VBG Base Excess (-10--2) Blood Type Antibody Screen Screen NEGATIVE (NEGATIVE) RhIG Candidate? YES Rhogam Indicated YES, BABY RH POS H Med Orders - Current: Current Medications Acetaminophen (Tylenol Extra Strength) 1,000 mg PO Q6H PRN PRN Reason: Pain Benzocaine/Menthol (Dermoplast Pain Relief 20%-0.5% [place]) 78 gm TOP ASDIRECTED PRN PRN Reason: Perineal Comfort Measure Last Admin: 10/22/19 19:23 Dose: 1 canister Bisacodyl (Dulcolax) 10 mg RECTAL ONETIME PRN PRN Reason: Constipation Butorphanol Tartrate (Stadol) 1 mg IVPUSH Q1H PRN PRN Reason: Pain Carboprost Tromethamine (Hemabate Ds) 250 mcg IM ASDIRECTED PRN PRN Reason: Post Hemorrhage Docusate Sodium (Colace) 100 mg PO BID PRN PRN Reason: Constipation Last Admin: 10/22/19 19:22 Dose: 100 mg Emollient Ointment (Lansinoh Hpa) 0 gm TOP ASDIRECTED PRN PRN Reason: Sore Nipples Last Admin: 10/22/19 19:23 Dose: 7 gram Lactated Ringer's (Ringers, Lactated) 1,000 mls @ 150 mls/hr IV ASDIRECTED [facility] Oxytocin/Sodium Chloride (Oxytocin 30 Unit/500 Ml-Ns) 30 unit in 500 mls @ 500 mls/hr IV TITRATE REINA Last Admin: 10/22/19 16:32 Dose: 500 mls/hr Tranexamic Acid 1,000 mg/ (Sodium Chloride) 110 mls @ 660 mls/hr IV ONETIME PRN PRN Reason: Bleeding Ibuprofen (Motrin) 800 mg PO Q8H PRN PRN Reason: Pain Last Admin: 10/23/19 04:11 Dose: 800 mg Lidocaine HCl (Xylocaine 1%) 50 ml INJECT ONETIME PRN PRN Reason: Laceration repair Last Admin: 10/22/19 17:53 Dose: 50 ml Methylergonovine Maleate (Methergine) 0.2 mg IM ASDIRECTED PRN PRN Reason: Post Hemorrhage Misoprostol (Cytotec) 200 mcg PO ONETIME PRN PRN Reason: Post Hemorrhage Nalbuphine HCl (Nubain) 10 mg IVPUSH Q1H PRN PRN Reason: Pain (severe 7-10) Oxycodone HCl (Oxycodone) 5 mg PO Q2H PRN PRN Reason: Pain Sodium Chloride (Saline Flush) 10 ml FLUSH ASDIRECTED PRN PRN Reason: Keep Vein Open Sodium Chloride (Saline Flush) 2.5 ml FLUSH ASDIRECTED PRN PRN Reason: Keep Vein Open Sodium Chloride (Normal Saline) 10 ml IV ASDIRECTED PRN PRN Reason: IV Use Sterile Water (Sterile Water For Irrigation) 1,000 ml IRR ASDIRECTED PRN PRN Reason: delivery Witch Marlene (Tucks) 1 pad TOP ASDIRECTED PRN PRN Reason: comfort care Last Admin: 10/22/19 19:24 Dose: 1 tub Discontinued Medications Ampicillin Sodium (Ampicillin) Confirm Administered Dose 2 gm IV .STK-MED ONE Stop: 10/22/19 17:15 Last Admin: 10/22/19 19:58 Dose: Not Given Ampicillin Sodium 2 gm/ Sodium (Chloride) 100 mls @ 200 mls/hr IV ONETIME ONE Stop: 10/22/19 17:40 Last Admin: 10/22/19 19:58 Dose: Not Given Sodium Chloride (Normal Saline) Confirm Administered Dose 100 mls @ as directed .ROUTE .STK-MED ONE Stop: 10/22/19 17:16 Last Admin: 10/22/19 19:58 Dose: Not Given - Interaction Disposition, : at Bedside Feeding: Attempted ; Nursed Fair/Poor Support Person: - Recovery Exam Fundal Tone: Firm Fundal Level: 2 Fingerbreadths Below Umbilicus Fundal Placement: Midline Lochia Amount: Small Lochia Color: Rubra/Red Bladder Status: Voiding Urinary Elimination: Voided - Exam General: Alert, Oriented Neck: Supple Lungs: Clear to Auscultation, Normal Respiratory Effort Cardiovascular: Regular Rate, Regular Rhythm GI/Abdominal Exam: Soft, Non-Tender Extremities: Non-Tender, No Pedal Edema Skin: Warm, Dry, Intact Neurological: No New Focal Deficit Psy/Mental Status: Alert, Normal Affect, Normal Mood - Problem List & Annotations (1) Vaginal delivery SNOMED Code(s): 658990104 Code(s): O80 - ENCOUNTER FOR FULL-TERM UNCOMPLICATED DELIVERY Status: Acute Current Visit: No - Problem List Review Problem List Initiated/Reviewed/Updated: Yes - My Orders Last 24 Hours: My Active Orders 10/22/19 16:25 Patient Status [ADT] Routine 10/22/19 17:00 RPR (SYPHILIS SERO) W/ RFLX [REF] Routine 10/22/19 17:11 Notify Provider [RC] PRN Butorphanol [Stadol] 1 mg IVPUSH Q1H PRN Carboprost Tromethamine [Hemabate DS] 250 mcg IM ASDIRECTED PRN Lidocaine 1% [Xylocaine 1%] 50 ml INJECT ONETIME PRN Methylergonovine [Methergine] 0.2 mg IM ASDIRECTED PRN Nalbuphine [Nubain] 10 mg IVPUSH Q1H PRN Sodium Chloride 0.9% [Normal Saline] 10 ml IV ASDIRECTED PRN Sodium Chloride 0.9% [Saline Flush] 10 ml FLUSH ASDIRECTED PRN Sodium Chloride 0.9% [Saline Flush] 2.5 ml FLUSH ASDIRECTED PRN Tranexamic Acid [Cyklokapron] 1,000 mg Sodium Chloride 0.9% [Normal Saline] 100 ml IV ONETIME Water For Irrigation,Sterile [Sterile Water for Irrigation] 1,000 ml IRR ASDIRECTED PRN miSOPROStoL [Cytotec] 200 mcg PO ONETIME PRN Scalp Electrode [WOMSER] Per Unit Routine Peripheral IV Insertion Adult [OM.PC] Routine Resuscitation Status Routine 10/22/19 17:15 Lactated Ringers [Ringers, Lactated] 1,000 ml IV ASDIRECTED Oxytocin/0.9 % Sodium Chloride [Oxytocin 30 Unit/500 ML-NS] 30 unit in 500 ml IV TITRATE 10/22/19 17:49 Patient Status [ADT] Routine Cooling Warming Measures [RC] ASDIRECTED May Shower [RC] ASDIRECTED Notify Provider Vital Signs [RC] ASDIRECTED Up ad Kati [RC] ASDIRECTED Vital Signs [RC] PER UNIT ROUTINE Acetaminophen [Tylenol Extra Strength] 1,000 mg PO Q6H PRN Benzocaine/Menthol [Dermoplast Pain Relief 20%-0.5% [place]] 78 gm TOP ASDIRECTED PRN Docusate Sodium [Colace] 100 mg PO BID PRN Ibuprofen [Motrin] 800 mg PO Q8H PRN Lanolin [Lansinoh HPA] See Dose Instructions TOP ASDIRECTED PRN bisacodyL [Dulcolax] 10 mg RECTAL ONETIME PRN oxyCODONE 5 mg PO Q2H PRN witch Marlene [Tucks] 1 pad TOP ASDIRECTED PRN Assess Lochia [WOMSER] Per Unit Routine Assess Uterine Involution [WOMSER] Per Unit Routine Breast Pump [WOMSER] Per Unit Routine Ice Therapy [OM.PC] Per Unit Routine Perineal Care [OM.PC] Per Unit Routine Peripheral IV Discontinue [OM.PC] Routine Sitz Bath [OM.PC] Per Unit Routine 10/22/19 18:55 SCREEN [BBK] Routine RH IMMUNE GLOBULIN [BBK] Routine RHIG WORKUP, [BBK] Routine 10/22/19 Dinner Regular Diet [DIET] - Assessment Assessment:: 29yo s/p , PPD#1 - Plan Plan:: Patient meeting all milestones. Plan to discharge home tomorrow after 48 hours due to inadequate GBS prophylaxis for infant.
--- NOTE | 2019-10-24 08:18 | PCM.PNPP ---
- General Info Date of Service: 10/24/19 Subjective Update: Patient without complaints this morning. Minimal lochia and pain. Tolerating oral intake, ambulating, voiding. going well. Functional Status: Reports: Pain Controlled, Tolerating Diet, Ambulating, Urinating - Review of Systems General: Reports: No Symptoms HEENT: Reports: No Symptoms Pulmonary: Reports: No Symptoms Cardiovascular: Reports: No Symptoms Gastrointestinal: Reports: No Symptoms Genitourinary: Reports: No Symptoms Musculoskeletal: Reports: No Symptoms Skin: Reports: No Symptoms Neurological: Reports: No Symptoms Psychiatric: Reports: No Symptoms - Patient Data Vital Signs - Most Recent: Last Vital Signs Temp 35.9 C L 10/24/19 07:38 Pulse 70 10/24/19 07:38 Resp 14 10/24/19 07:38 BP 115/68 10/24/19 07:38 Pulse Ox 96 10/24/19 07:38 Weight - Most Recent: 99.79 kg Lab Results - Last 24 Hours: Laboratory Results - last 24 hr 10/22/19 Range/Units 18:55 Screen NEGATIVE (NEGATIVE) RhIG Candidate? YES Rhogam Indicated YES, BABY RH POS H Med Orders - Current: Current Medications Acetaminophen (Tylenol Extra Strength) 1,000 mg PO Q6H PRN PRN Reason: Pain Benzocaine/Menthol (Dermoplast Pain Relief 20%-0.5% [place]) 78 gm TOP ASDIRECTED PRN PRN Reason: Perineal Comfort Measure Last Admin: 10/22/19 19:23 Dose: 1 canister Bisacodyl (Dulcolax) 10 mg RECTAL ONETIME PRN PRN Reason: Constipation Butorphanol Tartrate (Stadol) 1 mg IVPUSH Q1H PRN PRN Reason: Pain Carboprost Tromethamine (Hemabate Ds) 250 mcg IM ASDIRECTED PRN PRN Reason: Post Hemorrhage Docusate Sodium (Colace) 100 mg PO BID PRN PRN Reason: Constipation Last Admin: 10/22/19 19:22 Dose: 100 mg Emollient Ointment (Lansinoh Hpa) 0 gm TOP ASDIRECTED PRN PRN Reason: Sore Nipples Last Admin: 10/22/19 19:23 Dose: 7 gram Lactated Ringer's (Ringers, Lactated) 1,000 mls @ 150 mls/hr IV ASDIRECTED REINA Oxytocin/Sodium Chloride (Oxytocin 30 Unit/500 Ml-Ns) 30 unit in 500 mls @ 500 mls/hr IV TITRATE REINA Last Admin: 10/22/19 16:32 Dose: 500 mls/hr Tranexamic Acid 1,000 mg/ (Sodium Chloride) 110 mls @ 660 mls/hr IV ONETIME PRN PRN Reason: Bleeding Ibuprofen (Motrin) 800 mg PO Q8H PRN PRN Reason: Pain Last Admin: 10/23/19 22:37 Dose: 800 mg Lidocaine HCl (Xylocaine 1%) 50 ml INJECT ONETIME PRN PRN Reason: Laceration repair Last Admin: 10/22/19 17:53 Dose: 50 ml Methylergonovine Maleate (Methergine) 0.2 mg IM ASDIRECTED PRN PRN Reason: Post Hemorrhage Misoprostol (Cytotec) 200 mcg PO ONETIME PRN PRN Reason: Post Hemorrhage Nalbuphine HCl (Nubain) 10 mg IVPUSH Q1H PRN PRN Reason: Pain (severe 7-10) Oxycodone HCl (Oxycodone) 5 mg PO Q2H PRN PRN Reason: Pain Sodium Chloride (Saline Flush) 10 ml FLUSH ASDIRECTED PRN PRN Reason: Keep Vein Open Sodium Chloride (Saline Flush) 2.5 ml FLUSH ASDIRECTED PRN PRN Reason: Keep Vein Open Sodium Chloride (Normal Saline) 10 ml IV ASDIRECTED PRN PRN Reason: IV Use Sterile Water (Sterile Water For Irrigation) 1,000 ml IRR ASDIRECTED PRN PRN Reason: delivery Witch Marlene (Tucks) 1 pad TOP ASDIRECTED PRN PRN Reason: comfort care Last Admin: 10/22/19 19:24 Dose: 1 tub Discontinued Medications Ampicillin Sodium (Ampicillin) Confirm Administered Dose 2 gm IV .STK-MED ONE Stop: 10/22/19 17:15 Last Admin: 10/22/19 19:58 Dose: Not Given Ampicillin Sodium 2 gm/ Sodium (Chloride) 100 mls @ 200 mls/hr IV ONETIME ONE Stop: 10/22/19 17:40 Last Admin: 10/22/19 19:58 Dose: Not Given Sodium Chloride (Normal Saline) Confirm Administered Dose 100 mls @ as directed .ROUTE .STK-MED ONE Stop: 10/22/19 17:16 Last Admin: 10/22/19 19:58 Dose: Not Given - Infant Interaction Disposition, : [place] at Bedside Feeding: Attempted ; Nursed Fair/Poor Support Person: - Recovery Exam Fundal Tone: Firm Fundal Level: 1 Fingerbreadths Below Umbilicus Fundal Placement: Midline Lochia Amount: Scant Lochia Color: Rubra/Red Bladder Status: Voiding Urinary Elimination: Voided - Exam General: Alert, Oriented Neck: Supple Lungs: Clear to Auscultation, Normal Respiratory Effort Cardiovascular: Regular Rate, Regular Rhythm GI/Abdominal Exam: Soft, Non-Tender Extremities: Non-Tender, No Pedal Edema Skin: Warm, Dry, Intact Neurological: No New Focal Deficit Psy/Mental Status: Alert, Normal Affect, Normal Mood - Problem List & Annotations (1) Vaginal delivery SNOMED Code(s): 250453678 Code(s): O80 - ENCOUNTER FOR FULL-TERM UNCOMPLICATED DELIVERY Status: Acute Current Visit: No - Problem List Review Problem List Initiated/Reviewed/Updated: Yes - My Orders Last 24 Hours: My Active Orders 10/24/19 08:15 Ready for Discharge [RC] PER UNIT ROUTINE - Assessment Assessment:: 29yo s/p , PPD#2 - Plan Plan:: Discharge home today when baby cleared by 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 Reviewed discharge instructions, patient with no questions.
[2019-10-24] MEDS: Ibuprofen 800 MG Tab PO PRN (08:20)
== END 2019-10-24 12:22 | disposition home or self-care (01) | DRG 560 ==
LOC: MW.OB 16:24 → MW.OBCHECK 16:24 → MW.OB 16:42 → OBSVTOIN 17:49 → MW.OB 21:45
PROVIDERS: ADMIT Obstetrics & Gynecology; ATTEND Obstetrics & Gynecology
PROC: 10907ZC Drainage of Amniotic Fluid, Therapeutic from Products of Conception, Via Natural or Artificial Opening (ICD-10-PCS; principal; 2019-10-22)
PROC: 10E0XZZ Delivery of Products of Conception, External Approach (ICD-10-PCS; 2019-10-22)
DX: O99.824 Streptococcus B carrier state complicating childbirth (principal); Z37.0 Single live birth; O76 Abnormality in fetal heart rate and rhythm complicating labor and delivery; O45.93 Premature separation of placenta, unspecified, third trimester; Z3A.38 38 weeks gestation of pregnancy
CPT/HCPCS: 36415; 59025; 59409; 82803; 85014; 85018; 85027; 85460; 86592; 86593; 86850; 86900; 86901; A9270-GY; J2001; J2590; J2792

== ENCOUNTER 2021-09-28 04:52 | Inpatient (IN) | payer BC ==
[2021-09-28] MEDS ORDERED: Oxytocin/0.9 % Sodium Chloride 30 UNIT/500 ML BAG ONE (05:13)
[2021-09-28] MEDS ORDERED: Sodium Chloride 0.9% 100 ML ONE (05:18)
[2021-09-28] MEDS ORDERED: Ampicillin 2 GM AdvVial IV ONE (05:18)
[2021-09-28] MEDS ORDERED: Misoprostol 200 MCG Tab PO PRN (05:33)
[2021-09-28] MEDS ORDERED: Water For Irrigation,Sterile 1,000 ML Container IRR PRN (05:33)
[2021-09-28] MEDS ORDERED: Sodium Chloride 0.9% 2.5 ML Syringe FLUSH PRN (05:33)
[2021-09-28] MEDS ORDERED: Butorphanol 1 MG/ML SDV IVPUSH PRN (05:33)
[2021-09-28] MEDS ORDERED: Ampicillin 2 GM in Sodium Chloride 0.9% 100 ML IV ONE (05:33)
[2021-09-28] MEDS ORDERED: Lidocaine 1% 50 ML MDV INJECT PRN (05:33)
[2021-09-28] MEDS ORDERED: Carboprost Tromethamine 250 MCG/1 ML Amp IM PRN (05:33)
[2021-09-28] MEDS ORDERED: Sodium Chloride 0.9% 10 ML Syringe FLUSH PRN (05:33)
[2021-09-28] MEDS ORDERED: Tranexamic Acid 1,000 MG in Sodium Chloride 0.9% 100 ML IV PRN (05:33)
[2021-09-28] MEDS ORDERED: Methylergonovine 0.2 MG/1 ML Amp IM PRN (05:33)
[2021-09-28] MEDS ORDERED: Sodium Chloride 0.9% 20 ML SDV IV PRN (05:33)
[2021-09-28] MEDS ORDERED: Ondansetron 4 MG/2 ML SDV IVPUSH PRN (05:33)
[2021-09-28] MEDS ORDERED: Oxytocin/0.9 % Sodium Chloride 30 UNIT/500 ML BAG IV SCH (05:45)
[2021-09-28] MEDS ORDERED: Lactated Ringers 1,000 ML IV SCH (05:45)
[2021-09-28] MEDS ORDERED: Lanolin 100% Cream 7 GM Tube TOP PRN (08:31)
[2021-09-28] MEDS ORDERED: oxyCODONE 5 MG Tab PO PRN (08:31)
[2021-09-28] MEDS ORDERED: Benzocaine/Menthol 20%-0.5% Spray 78 GM Cannister TOP PRN (08:31)
[2021-09-28] MEDS ORDERED: Bisacodyl 10 MG Supp RECTAL PRN (08:31)
[2021-09-28] MEDS ORDERED: Witch Hazel Medicated Pads 40/Jar TOP PRN (08:31)
[2021-09-28] MEDS: Acetaminophen 500 MG Tab PO PRN ×2 (10:02→18:06)
[2021-09-28] MEDS: Ampicillin 1 GM in Sodium Chloride 0.9% 50 ML IV SCH ×2 (21:16→21:17)
[2021-09-28] MEDS: Docusate Sodium 100 MG Cap PO PRN (23:28)
[2021-09-28] MEDS: Ibuprofen 800 MG Tab PO PRN (23:31)
[2021-09-29] MEDS: Acetaminophen 500 MG Tab PO PRN ×2 (11:49→19:44)
[2021-09-29] MEDS: Ibuprofen 800 MG Tab PO PRN (11:50)
[2021-09-29] MEDS: Docusate Sodium 100 MG Cap PO PRN (19:44)
[2021-09-30] MEDS: Acetaminophen 500 MG Tab PO PRN (09:37)
[2021-09-30] MEDS: Docusate Sodium 100 MG Cap PO PRN (09:37)
== END 2021-09-30 15:58 | disposition home or self-care (01) | DRG 560 ==
LOC: MW.OBCHECK 04:52 → MW.OB 04:54 → MW.OBCHECK 05:33 → MW.OB 05:33 → OBSVTOIN 08:32 → MW.OB 11:38
PROVIDERS: ADMIT Obstetrics & Gynecology; ATTEND Obstetrics & Gynecology
PROC: 10E0XZZ Delivery of Products of Conception, External Approach (ICD-10-PCS; principal; 2021-09-28)
DX: O99.824 Streptococcus B carrier state complicating childbirth (principal); Z37.0 Single live birth; O60.14X0 Preterm labor third trimester with preterm delivery third trimester, not applicable or unspecified; Z20.822 Contact with and (suspected) exposure to COVID-19; Z3A.36 36 weeks gestation of pregnancy
CPT/HCPCS: 36415; 59025; 59409; 85014; 85018; 85027; 86592; 86850; 86900; 86901; A9270-GY; J0290; J2590; J7120; U0002

== ENCOUNTER 2022-02-23 06:21 | Emergency (ER) | payer BC ==
[2022-02-23] MEDS: Sodium Chloride 0.9% 1,000 ML IV ONE (07:10)
[2022-02-23] MEDS: Ketorolac 30 MG/ML SDV IVPUSH ONE (07:20)
[2022-02-23] MEDS: Ondansetron 4 MG/2 ML SDV IVPUSH ONE (07:24)
[2022-02-23] MEDS: cefTRIAXone 1 GM in Sodium Chloride 0.9% 50 ML IV ONE (07:47)
[2022-02-23 08:10] LABS: CARBON DIOXIDE,CO2 22.7 mmol/L (21.0-32.0)
== END 2022-02-23 08:38 | disposition home or self-care (01) ==
LOC: MW.ED 06:21
DX: N12 Tubulo-interstitial nephritis, not specified as acute or chronic (principal)
CPT/HCPCS: 36415; 74176; 80053; 81001; 81025; 83690; 85025; 96365; 96375; 99284; J0696; J1885; J7030